=== PATIENT | female | born 1990 | race Caucasian/White ===

== ENCOUNTER 2020-09-22 03:35 | Outpatient (REF) | payer SELFPAY ==
[2020-09-25 12:09] LABS: COVID-19 RT-PCR Result NEGATIVE (Negative)
== END 2020-09-22 03:55 ==
LOC: LBO 03:35
PROVIDERS: PCP Nurse Practitioner Family; Visit Provider Nurse Practitioner Family
DX: Z11.59 Encounter for screening for other viral diseases (principal)
CPT/HCPCS: U0003

== ENCOUNTER 2022-01-02 03:07 | Outpatient (CLI) | payer SELFPAY ==
[2022-01-02 15:47] LABS: HCG Quant, Pregnancy 40692 mIU/mL (1-3)
== END 2022-01-02 03:08 | disposition home or self-care (01) ==
LOC: LBO 03:07
PROVIDERS: Visit Provider Obstetrics & Gynecology
DX: O20.0 Threatened abortion (principal)
CPT/HCPCS: 36415; 84702

== ENCOUNTER 2022-12-15 13:32 | Emergency (ER) | payer SELFPAY ==
[2022-12-15 13:33] VITALS: BP 108/74; PULSE 112; RESP 20; O2SAT 100
--- NOTE | 2022-12-15 13:45 | ED.GENADUL_ITS ---
Discharge Plan Disposition Patient Disposition: Home Discharge Details Chief Complaint: Trauma Clinical Impression: Injury of nose, Epistaxis Primary Care Provider: Unknown,Unknown ED Provider: Tad Montemayor Home Meds and New Rx's Prescriptions: No Action No Known Home Meds Discharge Instructions Instructions: Nosebleed (ED), Nasal Contusion (ED) Additional Instructions: Please ice face and nose, use ibuprofen as needed. Please return to the emergency department for any worsening symptoms. Medical Decision Making 32-year-old female excellently struck in the face by the arm of an opponent/the ball during a basketball game, no loss of consciousness, no vomiting, behaving normally ambulatory, sustained superficial abrasions to bridge of nose as well as ecchymosis to bridge of nose and right maxillary region/periorbital region. Extraocular motion intact no visual changes. Resolving epistaxis. Midline septum, moving air through both nares, bridge of nose appears symmetric. Likely contusion with epistaxis must also consider nondisplaced nasal bone fracture. Given normal neurologic status hemodynamic status and resolving epistaxis and no respiratory symptoms at this time imaging is not indicated. Patient has been icing will take ibuprofen. Given home care instructions and return precautions. HPI General Date/Time Provider Initiated Documentation: 12/15/22 13:32 . HPI Narrative: 32-year-old female was struck by the ball/arm of an opponent while playing basketball. Struck directly in the face and nose; excess result before arrival. No loss of conscious no vomiting no trouble breathing. Related Data Home Medications Medication Instructions Recorded Confirmed Unknown [No Known Home Meds] 12/15/22 12/15/22 Allergies Allergy/AdvReac Type Severity Reaction Status Date / Time No Known Allergies Allergy Unverified 12/15/22 13:36 General Stated Complaint: Trauma ABEL: 4 Review of Systems Narrative: Review of Systems Constitutional: negative Eyes: negative ENT: Facial injury Cardiovascular: negative Respiratory: negative Gastrointestinal: negative : negative Musculoskeletal: negative Skin: negative Neurologic: negative Psych: negative PFSH All Active Problems (Updated 12/15/22 @ 13:52 by Tad Montemayor MD) Injury of nose (Acute) Epistaxis (Acute) Medical History (Updated 12/15/22 @ 13:52 by Tad [email or web address] MD) Infected sebaceous cyst of skin Surgical History (Updated 01/12/16 @ 10:57 by Em Jesus MD) Incision & Drainage, Abscess or Hematoma (~01/2016) Family History Mother No problems noted. Father No problems noted. Sister No problems noted. Sister No problems noted. Sister No problems noted. Sister No problems noted. Sister No problems noted. Sister No problems noted. Brother No problems noted. Grandfather , Colon [place] at age 55. No problems noted. Grandfather , [place] at age 80. No problems noted. Social History Smoking/Tobacco Use Status: Never Smoking risk assessment performed?: Yes Alcohol Intake: never Substance use type: does not use Do you feel safe at home: Yes Do you feel safe in your relationship?: Yes Exam Narrative Exam Narrative: Physical Examination General: alert, awake, cooperative, resting comfortably, no acute distress HEENT: normocephalic, superficial abrasions to bridge of nose, ecchymosis to bridge of nose into right periorbital and maxillary region, septum appears symmetric, minimal epistaxis, patient able to breathe from both naris; PERRL, EOM intact, conjunctiva normal Neck: supple, trachea midline; full ROM Chest: normal to inspection Neuro: AAOx3, normal speech, moving all extremities Extremities: No external signs of trauma, full range of motion, ambulatory without assistance Psych: Appropriate mood and affect Course Vital Signs Vital signs: Vital Signs Pulse 112 H 12/15/22 13:33 Respiratory Rate 20 12/15/22 13:33 Blood Pressure 108/74 12/15/22 13:33 Pulse Oximetry 100 12/15/22 13:33 Pulse 112 H 12/15/22 13:33 Respiratory Rate 20 12/15/22 13:33 Respiratory Effort Normal 12/15/22 13:36 Blood Pressure 108/74 12/15/22 13:33 Blood Pressure Position Sitting 12/15/22 13:33 Pulse Oximetry 100 12/15/22 13:33 Oxygen Delivery Method Room Air 12/15/22 13:33 Oxygen Flow Rate 0 12/15/22 13:33 Pain Level 0 12/15/22 13:33
== END 2022-12-15 14:33 | disposition home or self-care (01) ==
PROVIDERS: Emergency Provider Emergency Medicine
DX: S00.33XA Contusion of nose, initial encounter (principal); R04.0 Epistaxis; W51.XXXA Accidental striking against or bumped into by another person, initial encounter; Y93.67 Activity, basketball
CPT/HCPCS: 99282

== ENCOUNTER 2023-08-19 14:46 | Emergency (ER) | payer SELFPAY ==
[2023-08-19 14:50] VITALS: BP 137/98; PULSE 83; RESP 16; TEMP 36.6; O2SAT 98
--- NOTE | 2023-08-19 15:09 | ED.GENADUL_ITS ---
Discharge Plan Disposition Patient Disposition: Home Discharge Details Clinical Impression: Eczema Primary Care Provider: Unknown,Unknown ED Provider: Isaiah Coley Home Meds and New Rx's Prescriptions: New cetirizine 10 mg tablet 10 mg PO DAILY PRN (Reason: allergy symptoms) Qty: 30 0RF prednisone 50 mg tablet 50 mg PO DAILY 5 Days Qty: 5 0RF Discharge Instructions Instructions: Dermatitis (ED) Additional Instructions: You were seen in the emergency department for a rash. Based off of our examination you likely are experiencing either eczema or a dermatitis. It is unknown what could be causing this contact or irritant dermatitis. Start taking cetirizine 10 mg daily in the morning to help with your symptoms. You can take 50 mg of Benadryl every 6 hours twice a day in the evenings to help with the symptoms if you have lingering itchiness or worsening rash in the evenings. If you have been taking these medications for 2 to 3 days and your symptoms have not improved you can start the course of steroids that I have prescribed for you. Follow-up with your primary care doctor. Return if you develop any swelling, difficulty breathing, intractable nausea or vomiting, or any other symptoms that are worrisome to you. Start keeping a diary to help identify things in your daily life that may be causing some contact or irritant rash to your skin. Referrals: Primary Care Provider [Outside] - 1 week Medical Decision Making 32-year-old female presents with rash. Based off exam suspect that this represents a dermatitis. Could be allergic but no obvious precipitating cause. Educated on taking cetirizine and Benadryl and will also give her a course of steroids if this does not improve her symptoms. She does not have any symptoms to suggest anaphylaxis so no role for treatment for anaphylaxis at this time. No clear urticaria on exam and only the eczematous changes. No infectious source is identified in the history. Educated patient on treatment as above and to follow-up with her doctor. She expresses understanding. Will discharge with return precautions. HPI General Date/Time Provider Initiated Documentation: 08/19/23 14:51 . Limitations to Documentation: no limitations . Information obtained by: patient . HPI Narrative: 32-year-old female presents with a rash. Has had eczema in the past. Says this looks similar but worse than she has ever had it. Says it started on her abdomen and is now all over her extremities and her back and chest. No mouth or genital lesions. She denies any other symptoms. No swelling within her mouth. No difficulty breathing. No nausea or vomiting or other gastrointestinal symptoms. No fevers or chills. 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 She said that this rash started before she even interacted with animals. She does not notice any new lifestyle changes includ ing no soaps, new clothes, or new exposures. No new foods in her diet. She says that is so itchy she had to come in today. Related Data Home Medications Medication Instructions Recorded Confirmed cetirizine 10 mg tablet 10 mg PO DAILY PRN allergy 08/19/23 symptoms #30 tabs prednisone 50 mg tablet 50 mg PO DAILY 5 days #5 tabs 08/19/23 Previous Rx's Medication Instructions Recorded cetirizine 10 mg tablet 10 mg PO DAILY PRN allergy 08/19/23 symptoms #30 tabs prednisone 50 mg tablet 50 mg PO DAILY 5 days #5 tabs 08/19/23 Allergies Allergy/AdvReac Type Severity Reaction Status Date / Time No Known Allergies Allergy Unverified 08/19/23 14:52 General Stated Complaint: RashLesion ABEL: 4 Review of Systems Constitutional Constitutional: Denies chills, Denies fever(s) and Denies headache(s) Eyes Eyes: Denies change in vision ENT Ears, Nose, Mouth, and Throat: Denies headache(s) and Denies odynophagia Cardiovascular Cardiovascular: Denies chest pain and Denies dyspnea Respiratory Respiratory: Denies dyspnea Gastrointestinal Gastrointestinal: Denies abdominal pain, Denies diarrhea, Denies nausea, Denies odynophagia and Denies vomiting Genitourinary Genitourinary: Denies dysuria Musculoskeletal Musculoskeletal: Denies myalgias Integumentary/Breasts Skin/Breast: Reports rash Neurologic Neurologic: Denies behavioral changes and Denies headache(s) Psychiatric Psychiatric: Denies behavioral changes Endocrine Endocrine: Denies heat intolerance Hematologic/Lymphatic Hematologic/Lymphatic: Denies lymphadenopathy PFSH All Active Problems Eczema (Acute) Medical History Infected sebaceous cyst of skin Surgical History Incision & Drainage, Abscess or Hematoma (~01/2016) Family History Mother No problems noted. Father No problems noted. Sister No problems noted. Sister No problems noted. Sister No problems noted. Sister No problems noted. Sister No problems noted. Sister No problems noted. Brother No problems noted. Grandfather , Colon [place] at age 55. No problems noted. Grandfather , [place] at age 80. No problems noted. Social History Smoking/Tobacco Use Status: Never Smoking risk assessment performed?: Yes Alcohol Intake: never Substance use type: does not use Do you feel safe at home: Yes Do you feel safe in your relationship?: Yes Exam Const General: cooperative Nutritional Appearance: average body habitus Orientation: alert, awake and oriented x3 HENMT Head: normal to inspection Ears: external ears normal Mouth: moist mucous membranes Eyes Pupils: PERRL EOM: EOM intact bilaterally and No nystagmus Neck Neck: full ROM and no tracheal deviation Chest Chest: normal inspection of the chest Resp Auscultation: clear to auscultation bilaterally Cardio Rate: regular rate Rhythm: regular rhythm GI Inspection: normal to inspection Palpation: soft, no guarding, not rigid and nontender Back/Spine/Pelvis Back: No no CVA tenderness Thoracic/Lumbar Spine: thoracic and lumbar spine normal to inspection Skin Other: Eczematous rash on the torso, back, and extremities. No areas of purulence or areas of drainage. Does not follow a dermatomal pattern. Multiple excoriations from itching. None focused over the joints in particular. No mucosal involvement of this rash. Neuro General: patient alert, patient awake and patient oriented x3 Cranial Nerves: CN's II-XI intact bilaterally, PERRL and no nystagmus Cognition: normal cognition Motor: muscle tone normal throughout and strength 5/5 throughout Sensory Exam: no sensory deficits noted Extrem General: normal to inspection Course Vital Signs Vital signs: Vital Signs Temperature 36.6 C 08/19/23 14:50 Pulse 83 08/19/23 14:50 Respiratory Rate 16 08/19/23 14:50 Blood Pressure 137/98 H 08/19/23 14:50 Pulse Oximetry 98 08/19/23 14:50 Temperature 36.6 C 08/19/23 14:50 Temperature Source Skin 08/19/23 14:50 Pulse 83 08/19/23 14:50 Respiratory Rate 16 08/19/23 14:50 Respiratory Effort Normal, Non-Labored 08/19/23 14:53 Blood Pressure 137/98 H 08/19/23 14:50 Blood Pressure Position Sitting 08/19/23 14:50 Pulse Oximetry 98 08/19/23 14:50 Oxygen Delivery Method Room Air 08/19/23 14:50 Oxygen Flow Rate 0 08/19/23 14:50 Pain Level 0 08/19/23 14:50
== END 2023-08-19 15:32 | disposition home or self-care (01) ==
PROVIDERS: Emergency Provider Student in an Organized Health Care Education/Training Program
DX: L30.9 Dermatitis, unspecified
CPT/HCPCS: 99282; 99283